=== PATIENT | male | born 1995 | race Asian ===

== ENCOUNTER → 2016-09-19 | Outpatient (CLI) | payer OTHER | END | disposition home or self-care (01) | LOC: C.LAB1850 12:39 | PROVIDERS: ATTEND Dermatology | DX: E55.9 Vitamin D deficiency, unspecified (principal) ==

== ENCOUNTER → 2017-06-11 | Outpatient (CLI) | payer OTHER ==
[2017-06-11 13:18] LABS: BASO % 0.3 %; BASO ABS # 0.02 K/uL (0-0.2); COMPLETE YES; EOS % 4.7 %; EOS ABS # 0.27 K/uL (0-0.5); HEMOGLOBIN 16.3 g/dL (14.0-18.0); IG# 0.01 K/uL (0.00-0.02); IG% 0.2 %; LYMPH % 41.2 %; LYMPH ABS # 2.38 K/uL (1.2-3.4); MEAN CELL VOLUME 86.2 fL (80-100); MEAN CORPUSCULAR HEMOGLOBIN 29.3 pg (25-34); MEAN PLATELET VOLUME 10.1 fL (7.4-10.4); MONO % 8.5 %; MONO ABS # 0.49 K/uL (0.11-0.59); NEUT % 45.1 %; NEUT ABS # 2.61 K/uL (1.4-6.5); PLATELET COUNT 194 K/uL (130-400); RED BLOOD COUNT 5.57 M/uL (4.7-6.1); RED CELL DISTRIBUTION WIDTH CV 12.8 % (11.5-14.5); RED CELL DISTRIBUTION WIDTH SD 40.4 fL (36.4-46.3); WHITE BLOOD COUNT 5.78 K/uL (4.8-10.8)
[2017-06-11 14:18] LABS: GLUCOSE 76 mg/dl (70-99)
[2017-06-11 14:18] LABS: ALBUMIN 4.2 gm/dl (3.4-5.0); ALT/SGPT 24 U/L (12-78); BLOOD UREA NITROGEN 18 mg/dl (7-18); BUN/CREATININE RATIO 21.1 (10-20); CALCIUM 9.6 mg/dl (8.5-10.1); CARBON DIOXIDE 27 mmol/L (21-32); CHLORIDE 103 mmol/L (98-107); CREATININE 0.83 mg/dl (0.60-1.40); EstGFR CKD-E AfrAm 145.8; EstGFR CKD-E NON AfrAm 125.8; LIPASE 201 U/L (73-393); POTASSIUM 4.1 mmol/L (3.5-5.1); SODIUM 138 mmol/L (136-145)
[2017-06-11 14:28] LABS: ALB/GLOB RATIO 1.3 (0.9-2); ALKALINE PHOSPHATASE 74 U/L (45-117); AST/SGOT 18 U/L (15-37); THYROID STIMULATING HORMONE 0.896 uIu/ml (0.300-4.500); TOTAL PROTEIN 7.6 gm/dl (6.4-8.2)
== END | disposition home or self-care (01) ==
LOC: C.LAB1850 11:48
DX: R19.7 Diarrhea, unspecified (principal)

== ENCOUNTER → 2017-06-13 | Outpatient (CLI) | payer OTHER ==
[2017-06-17 14:31] LABS: FECAL OCCULT BLOOD #1 NEGATIVE (NEGATIVE); FECAL OCCULT BLOOD #2 NEGATIVE (NEGATIVE); FECAL OCCULT BLOOD #3 NEGATIVE (NEGATIVE)
== END | disposition home or self-care (01) ==
LOC: C.LABSPEC 13:52
PROVIDERS: ATTEND Nurse Practitioner Adult Health
DX: R19.7 Diarrhea, unspecified (principal)

== ENCOUNTER → 2017-06-17 | Outpatient (CLI) | payer OTHER | END | disposition home or self-care (01) | LOC: C.LAB1850 11:31 | PROVIDERS: ATTEND Nurse Practitioner Adult Health | DX: R19.7 Diarrhea, unspecified (principal) ==